=== PATIENT | female | born 1950 | race Caucasian/White ===

== ENCOUNTER → 2017-04-20 | Outpatient (CLI) | payer OTHER, MEDICARE ==
[~2017-04-20] MED LIST: ALBU1AER9; ATV5 PO; CLTP PO; CMDUNK; FLNIN NAE; FRRS300 PO; GLCSUNK; METO50TA7 PO; OMEG10007 PO; OXYSRUNK PO; PRCUNK PO; PRED-301 PO; PRLSR20 PO; SIMV20TA2 PO; SNG10 PO
[2017-04-20 13:30] LABS: BASO % 1.1 %; BASO ABS # 0.09 K/uL (0-0.2); COMPLETE YES; EOS % 1.9 %; HEMATOCRIT 40.2 % (37-47); IG% 0.6 %; LYMPH % 26.1 %; LYMPH ABS # 2.11 K/uL (1.2-3.4); MEAN CORPUSCULAR HEMOGLOBIN 29.4 pg (25-34); MEAN CORPUSCULAR HGB CONC 32.3 g/dl (32-36); MEAN PLATELET VOLUME 10.6 fL (7.4-10.4); MONO % 11.6 %; NEUT % 58.7 %; PLATELET COUNT 232 K/uL (130-400); RED BLOOD COUNT 4.42 M/uL (4.2-5.4); WHITE BLOOD COUNT 8.07 K/uL (4.8-10.8)
[2017-04-20 14:50] LABS: CALCIUM 8.9 mg/dl (8.5-10.1)
[2017-04-20 14:58] LABS: ALKALINE PHOSPHATASE 55 U/L (45-117); ALT/SGPT 37 U/L (12-78); AST/SGOT 24 U/L (15-37); BLOOD UREA NITROGEN 20 mg/dl (7-18); BUN/CREATININE RATIO 20.6 (10-20); CARBON DIOXIDE 27 mmol/L (21-32); CHLORIDE 107 mmol/L (98-107); CREATININE 0.98 mg/dl (0.60-1.20); GLUCOSE 92 mg/dl (70-99); HDL CHOLESTEROL 68 mg/dl; POTASSIUM 4.1 mmol/L (3.5-5.1); SODIUM 142 mmol/L (136-145)
[2017-04-20 14:59] LABS: CHOLESTEROL 181 mg/dl (0-200); CHOLESTEROL/HDL RATIO 2.7; LDL CHOLESTEROL CALCULATED 78 mg/dl; TRIGLYCERIDES 174 mg/dl (0-150); VERY LOW DENSITY LIPOPROT CALC 35 mg/dl
== END | disposition home or self-care (01) ==
LOC: C.LABMFLN 08:27
PROVIDERS: ATTEND Family Medicine
DX: I10 Essential (primary) hypertension (principal); E78.5 Hyperlipidemia, unspecified

== ENCOUNTER → 2017-05-25 | Outpatient (CLI) | payer OTHER, MEDICARE ==
[2017-05-25 18:51] LABS: LYME DISEASE AB IGG NEG (NEG); LYME DISEASE AB IGM NEG (NEG)
[2017-05-25 23:17] LABS: RAPID PLASMA REAGIN NONREACTIVE (NONREACT)
[2017-05-26 06:22] LABS: ESTIMATED AVERAGE GLUCOSE 117 mg/dl; HA1C FLAG Normal (Normal)
[2017-05-27 16:01] LABS: ALBUMIN 4.1 G/DL (3.8-4.8); GAMMA GLOBULIN 1.1 G/DL (0.8-1.7); TOTAL PROTEIN 7.2 G/DL (6.2-8.3)
--- NOTE | 2017-06-01 12:03 | CODING QUERY MEDICAL NECESSITY ---
SUPPORTING DIAGNOSIS NEEDED A supporting diagnosis is required for the test/procedure performed on this patient in order for us to be reimbursed by the patient's insurance. Please provide a supporting diagnosis for the following test/procedure listed below next to the test name along with your signature. *If there is no additional diagnosis for this patient that would support the following test/procedure please document that below next to the test/procedure. Test(s)/Procedure(s) that require a supporting diagnosis: * HEMOGLOBIN A1C DIAGNOSIS: * VITAMIN B12 DIAGNOSIS: Provider Signature: Date: Thank you Shama Medina [employer] Once completed, please kindly fax back to [phone] For questions please call [phone]
== END | disposition home or self-care (01) ==
LOC: C.LABMFLN 14:03
PROVIDERS: ATTEND Family Medicine
DX: G62.9 Polyneuropathy, unspecified (principal)

== ENCOUNTER → 2018-05-12 | Outpatient (CLI) | payer OTHER, MEDICARE ==
[~2018-05-12] MED LIST changes: -METO50TA7 PO; +METO50TA8 PO
[2018-05-12 14:07] LABS: ALBUMIN 3.3 gm/dl (3.4-5.0); BLOOD UREA NITROGEN 21 mg/dl (7-18); CALCIUM 8.7 mg/dl (8.5-10.1); CARBON DIOXIDE 27 mmol/L (21-32); GLUCOSE 104 mg/dl (70-99); PHOSPHORUS 3.2 mg/dl (2.5-4.9); POTASSIUM 3.8 mmol/L (3.5-5.1); SODIUM 140 mmol/L (136-145)
== END | disposition home or self-care (01) ==
LOC: C.LABMFLN 09:02
PROVIDERS: ATTEND Family Medicine
DX: M81.0 Age-related osteoporosis without current pathological fracture (principal); E78.5 Hyperlipidemia, unspecified